=== PATIENT | male | born 1955 | race Caucasian/White ===

== ENCOUNTER 2020-08-29 22:53 | Inpatient (IN) | payer MEDICARE ==
[2020-08-29] MEDS ORDERED: Sodium Chloride 0.9% 1,000 ML IV SCH (23:15)
--- NOTE | 2020-08-29 23:23 | EDM.PDOC ---
ED HPI GENERAL MEDICAL PROBLEM - General Chief Complaint: Gastrointestinal Problem Stated Complaint: FEELING LIGHT HEADED,WEAK Time Seen by Provider: 08/29/20 23:20 Source of Information: Reports: Patient History Limitations: Reports: No Limitations - History of Present Illness INITIAL COMMENTS - FREE TEXT/NARRATIVE: pt arrived with a history of vomiting 3 times some very dark coffee ground material. Prior to coming to the hospital he had a dark looking stool. He has not had abdomanal pain recently. He has noted some reflux. Onset: Today, Sudden Duration: Hour(s): Location: Reports: Abdomen, Other (pt is feeling weak and dizzy. ) Associated Symptoms: Reports: Diaphoresis, Malaise, Nausea/Vomiting, Weakness Abdomen Pain Score (Numeric/FACES): 3 - Related Data Allergies Allergy/AdvReac Type Severity Reaction Status Date / Time No Known Allergies Allergy Verified 08/29/20 23:08 Home Meds: Home Meds Hydrocodone/Acetaminophen [[place] 5-325 Tablet] 1 - 2 tab PO Q6HR PRN 03/04/19 [History] predniSONE [Prednisone] 5 mg PO DAILY 03/04/19 [History] traZODone HCl [Trazodone HCl] 100 mg PO BEDTIME 03/04/19 [History] Pantoprazole Sodium [Protonix] 40 mg PO BID #30 tablet. 09/01/20 [Rx] Past Medical History HEENT History: Reports: Hard of Hearing Cardiovascular History: Reports: None Respiratory History: Reports: None Gastrointestinal History: Reports: None Genitourinary History: Reports: Prostate Disorder Musculoskeletal History: Reports: Arthritis Neurological History: Reports: Concussion, Head Trauma Psychiatric History: Reports: Depression Endocrine/Metabolic History: Reports: None Hematologic History: Reports: None Immunologic History: Reports: None Oncologic (Cancer) History: Reports: Bladder, Prostate Dermatologic History: Reports: None - Infectious Disease History Infectious Disease History: Reports: Chicken Pox, Measles - Past Surgical History Head Surgeries/Procedures: Reports: None HEENT Surgical History: Reports: None Cardiovascular Surgical History: Reports: None Respiratory Surgical History: Reports: None GI Surgical History: Reports: None Male Surgical History: Reports: Prostatectomy Endocrine Surgical History: Reports: None Neurological Surgical History: Reports: None Musculoskeletal Surgical History: Reports: Arthroscopic Knee, Other (See Below) Other Musculoskeletal Surgeries/Procedures:: RIGHT MIDDLE FINGER CYST Oncologic Surgical History: Reports: None Dermatological Surgical History: Reports: None Social & Family History - Family History Family Medical History: No Pertinent Family History - Caffeine Use Caffeine Use: Reports: Coffee ED ROS GENERAL - Review of Systems Review Of Systems: See Below Constitutional: Reports: Malaise, Weakness HEENT: Reports: No Symptoms Respiratory: Reports: No Symptoms Cardiovascular: Reports: No Symptoms Endocrine: Reports: No Symptoms GI/Abdominal: Reports: Abdominal Pain, Black Stool, Hematemesis, Nausea, Vomiting Musculoskeletal: Reports: No Symptoms Skin: Reports: No Symptoms Neurological: Reports: Dizziness, Other (pt did vomit blood. ) ED EXAM, GI/ABD - Physical Exam Exam: See Below Text/Narrative:: pt arrived with a history of vomiting three times some dark coffee ground looking material. He had a dark stool prior to leaving home. He has a history of a little reflux like symptoms recently. He is chronicly on predsone because of the ongoing joint symptoms from Lymes diease. Exam Limited By: No Limitations General Appearance: Alert, No Apparent Distress, Anxious, Other (pt is sweaty. ) Ears: Normal TMs Nose: Normal Inspection Throat/Mouth: Normal Inspection Head: Atraumatic Neck: Normal Inspection Respiratory/Chest: No Respiratory Distress Cardiovascular: Regular Rate, Rhythm, Tachycardia GI/Abdominal Exam: Soft, Non-Tender (Male) Exam: Deferred Rectal (Males) Exam: Bloody Stool, Other ( no masses present. ) Back Exam: Normal Inspection Extremities: Normal Inspection Neurological: Alert, Oriented, Normal Cognition Psychiatric: Anxious Course - Vital Signs Last Recorded V/S: Last Vital Signs Temp 36.4 C 09/01/20 10:27 Pulse 85 09/01/20 12:32 Resp 16 09/01/20 12:32 BP 147/82 H 09/01/20 12:32 Pulse Ox 97 09/01/20 12:32 - Orders/Labs/Meds Labs: Laboratory Tests 08/29/20 08/29/20 08/29/20 Range/Units 23:15 23:15 23:15 WBC 10.9 (4.5-11.0) K/uL RBC 4.48 (4.30-5.90) M/uL Hgb 13.6 (12.0-15.0) g/dL Hct 42.6 (40.0-54.0) % MCV 95 (80-98) fL MCH 30 (27-31) pg MCHC 32 (32-36) % Plt Count 280 (150-400) K/uL Neut % (Auto) 60 (36-66) % Lymph % (Auto) 27 (24-44) % [place] % (Auto) 11 H (2-6) % Eos % (Auto) 2 (2-4) % Baso % (Auto) 1 (0-1) % Sodium 141 (140-148) mmol/L Potassium 4.4 (3.6-5.2) mmol/L Chloride 100 (100-108) mmol/L Carbon Dioxide 29 (21-32) mmol/L Anion Gap 16.4 H (5.0-14.0) mmol/L BUN 42 H (7-18) mg/dL Creatinine 1.0 (0.8-1.3) mg/dL Est Cr Clr Drug Dosing 80.83 mL/min Estimated GFR (MDRD) > 60 (>60) Glucose 106 (74-106) mg/dL Calcium 9.1 (8.5-10.1) mg/dL Total Bilirubin 0.4 (0.2-1.0) mg/dL AST 21 (15-37) U/L ALT 33 (12-78) U/L Alkaline Phosphatase 77 (46-116) U/L Total Protein 6.9 (6.4-8.2) g/dL Albumin 3.5 (3.4-5.0) g/dL Globulin 3.4 (2.3-3.5) g/dL Albumin/Globulin Ratio 1.0 L (1.2-2.2) Blood Type A POSITIVE Gel Antibody Screen Negative Crossmatch See Detail Meds: Medications Discontinued Medications Generic Name Dose Route Start Last Admin Trade Name Freq PRN Reason Stop Dose Admin Acetaminophen 650 mg 08/30/20 00:30 Acetaminophen 650 Mg Supp RECTAL Q4H PRN Mild pain/fever Hydrocodone Bitart/Acetaminophen 1 - 2 tab 08/30/20 09:00 Acetaminophen/Hydrocodone 325-5 Mg Tab PO Q6H PRN Pain Fentanyl Confirm 08/30/20 06:59 Fentanyl 100 Mcg/2 Ml Sdv Administered 08/30/20 07:00 Dose 100 mcg .ROUTE .STK-MED ONE Sodium Chloride 1,000 mls @ 999 mls/hr 08/29/20 23:15 08/29/20 23:23 Normal Saline IV 999 mls/hr ASDIRECTED CYNTHIA Administration Pantoprazole Sodium 80 mg/ 100 mls @ 200 mls/hr 08/29/20 23:30 08/29/20 23:31 Sodium Chloride IV 200 mls/hr .BOLUS CYNTHIA Administration Octreotide Acetate 500 mcg/ 500 mls @ 50 mls/hr 08/30/20 00:30 08/30/20 11:12 Sodium Chloride IV 50 mcg/hr Q10H CYNTHIA 50 mls/hr Administration 50 MCG/HR Dextrose/Sodium Chloride 1,000 mls @ 100 mls/hr 08/30/20 00:30 08/30/20 20:13 Dextrose 5%-1/2 Ns IV 250 mls/hr ASDIRECTED CYNTHIA Administration Promethazine HCl 6.25 mg/ 50.25 mls @ 200 mls/hr 08/30/20 00:30 Sodium Chloride IV Q6H PRN Nausea/Vomiting Pantoprazole Sodium 80 mg/ 100 mls @ 200 mls/hr 08/30/20 00:30 08/30/20 01:57 Sodium Chloride IV 08/30/20 00:59 Not Given .BOLUS ONE Sodium Chloride 1,000 mls @ 1,000 mls/hr 08/30/20 00:53 08/30/20 04:54 Normal Saline IV 08/30/20 01:52 1,000 mls/hr .BOLUS ONE Administration Midazolam HCl Confirm 08/30/20 06:59 Midazolam 1 Mg/Ml 2 Ml Sdv Administered 08/30/20 07:00 Dose 2 mg .ROUTE .STK-MED ONE Morphine Sulfate 2 mg 08/30/20 00:30 Morphine 2 Mg/Ml Syringe IVPUSH Q2H PRN Pain (severe 7-10) Ondansetron HCl 4 mg 08/29/20 23:25 08/30/20 01:39 Ondansetron 4 Mg/2 Ml Sdv IVPUSH 08/29/20 23:26 Not Given ONETIME ONE Ondansetron HCl 4 mg 08/30/20 00:30 Ondansetron 4 Mg/2 Ml Sdv IV Q4H PRN Nausea/Vomiting Pantoprazole Sodium 40 mg 08/30/20 10:00 09/01/20 09:11 Pantoprazole 40 Mg Vial IV 40 mg Q12H CYNTHIA Administration Potassium Chloride 40 meq 08/31/20 09:00 08/31/20 08:31 Potassium Chloride 20 Meq Tab.Er PO 08/31/20 09:01 40 meq ONETIME ONE Administration Potassium Chloride 40 meq 09/01/20 09:00 09/01/20 09:16 Potassium Chloride 20 Meq Tab.Er PO 09/01/20 09:01 40 meq ONETIME ONE Administration Prednisone 5 mg 08/30/20 09:00 09/01/20 09:11 Prednisone 5 Mg Tab PO 5 mg DAILY CYNTHIA Administration Propofol Confirm 08/30/20 06:59 Propofol 200 Mg/20 Ml Sdv Administered 08/30/20 07:00 Dose 200 mg .ROUTE .STK-MED ONE Trazodone HCl 100 mg 08/30/20 21:00 08/31/20 22:58 Trazodone 50 Mg Tab PO 100 mg BEDTIME CYNTHIA Administration - Re-Assessments/Exams Free Text/Narrative Re-Assessment/Exam: 09/05/20 07:36 pt was hydrated and typed and crossed for blood. He remained stable. He did look better after fluids. His hg was 13. Departure - Departure Time of Disposition: 10:30 Disposition: Admitted As Inpatient 66 Condition: Fair Clinical Impression: GI bleeding Qualifiers: GI bleed type/associated pathology: gastrointestinal hemorrhage with hematemesis Qualified Code(s): K92.0 - Hematemesis - Discharge Information Sepsis Event Note (ED) - Evaluation Sepsis Screening Result: No Definite Risk
[2020-08-29] MEDS ORDERED: Ondansetron 4 MG/2 ML SDV IVPUSH ONE (23:25)
[2020-08-29] MEDS ORDERED: Pantoprazole 80 MG in Sodium Chloride 0.9% 100 ML IV SCH (23:30)
[2020-08-30] MEDS ORDERED: Acetaminophen 650 MG Supp RECTAL PRN (00:30)
[2020-08-30] MEDS ORDERED: Pantoprazole 80 MG in Sodium Chloride 0.9% 100 ML IV ONE (00:30)
[2020-08-30] MEDS ORDERED: Morphine 2 MG/ML SYRINGE IVPUSH PRN (00:30)
[2020-08-30] MEDS ORDERED: Promethazine 6.25 MG in Sodium Chloride 0.9% 50 ML IV PRN (00:30)
[2020-08-30] MEDS ORDERED: Ondansetron 4 MG/2 ML SDV IV PRN (00:30)
[2020-08-30] MEDS ORDERED: Sodium Chloride 0.9% 1,000 ML IV ONE (00:53)
--- NOTE | 2020-08-30 01:05 | PCM.HP.2 ---
H&P History of Present Illness - General Date of Service: 08/30/20 Admit Problem/Dx: Admission Diagnosis/Problem Admission Diagnosis/Problem Bleeding gastric erosion Source of Information: Patient History Limitations: Reports: No Limitations - History of Present Illness Initial Comments - Free Text/Narative: Patient is a 65yo male who presented to the ER today with dark stools and dark emesis. He has never had this before. He says he has chronically been on prednisone for the last 7+ years as well as being on hydrocodone. He says this is due to chronic lyme disease issues after having a severe course of lyme disease. He also endorses drinking 2-6 beers/nt for a very long time. He has been feeling dizzy and was found to have red stool after a XANDER done by the ER provider. He has never been diagnosed with liver disease or other bleeding issues. Onset of Symptoms: Reports: Today Symptom Onset Date: 08/29/20 Duration of Symptoms: Reports: Hour(s): Severity: Moderate Abdomen Pain Score (Numeric/FACES): 3 - Related Data Allergies/Adverse Reactions: Allergies Allergy/AdvReac Type Severity Reaction Status Date / Time No Known Allergies Allergy Verified 08/29/20 23:08 Home Medications: Home Meds Hydrocodone/Acetaminophen [[place] 5-325 Tablet] 1 - 2 tab PO Q6HR PRN 03/04/19 [History] predniSONE [Prednisone] 5 mg PO DAILY 03/04/19 [History] traZODone HCl [Trazodone HCl] 100 mg PO BEDTIME 03/04/19 [History] Past Medical History HEENT History: Reports: Hard of Hearing Cardiovascular History: Reports: None Respiratory History: Reports: None Gastrointestinal History: Reports: None Genitourinary History: Reports: Prostate Disorder Musculoskeletal History: Reports: Arthritis Neurological History: Reports: Concussion, Head Trauma Psychiatric History: Reports: Depression Endocrine/Metabolic History: Reports: None Hematologic History: Reports: None Immunologic History: Reports: None Oncologic (Cancer) History: Reports: Bladder, Prostate Dermatologic History: Reports: None - Infectious Disease History Infectious Disease History: Reports: Chicken Pox, Measles - Past Surgical History Head Surgeries/Procedures: Reports: None HEENT Surgical History: Reports: None Cardiovascular Surgical History: Reports: None Respiratory Surgical History: Reports: None GI Surgical History: Reports: None Male Surgical History: Reports: Prostatectomy Endocrine Surgical History: Reports: None Neurological Surgical History: Reports: None Musculoskeletal Surgical History: Reports: Arthroscopic Knee, Other (See Below) Other Musculoskeletal Surgeries/Procedures:: RIGHT MIDDLE FINGER CYST Oncologic Surgical History: Reports: None Dermatological Surgical History: Reports: None Social & Family History - Family History Family Medical History: No Pertinent Family History - Tobacco Use Tobacco Use Status *Q: Never Tobacco User - Caffeine Use Caffeine Use: Reports: Coffee - Alcohol Use Days Per Week of Alcohol Use: 6 Number of Drinks Per Day: 4 Total Drinks Per Week: 24 - Recreational Drug Use Recreational Drug Use: Yes Recreational Drug Type: Reports: Marijuana/Hashish Recreational Drug Use Frequency: Daily H&P Review of Systems - Review of Systems: Review Of Systems: See Below General: Reports: Fatigue, Diaphoresis HEENT: Reports: No Symptoms Pulmonary: Reports: No Symptoms Cardiovascular: Reports: No Symptoms Gastrointestinal: Reports: Black Stool, Bloody Stool, Hematemesis, Nausea, Vomiting Genitourinary: Reports: No Symptoms Musculoskeletal: Reports: No Symptoms Skin: Reports: No Symptoms Psychiatric: Reports: No Symptoms Neurological: Reports: No Symptoms Hematologic/Lymphatic: Reports: No Symptoms Immunologic: Reports: No Symptoms Exam - Exam Exam: See Below - Vital Signs Vital Signs: Last Vital Signs Temp 35.6 C L 08/29/20 23:17 Pulse 99 08/29/20 23:17 Resp 16 08/29/20 23:17 BP 114/71 08/29/20 23:17 Pulse Ox 98 08/29/20 23:17 Weight: 78.018 kg - Exam General: Alert, Oriented, 4 HEENT: PERRLA, Hearing Intact, Mucosa Moist & [place], Nares Patent, Normal Nasal Septum, Posterior Pharynx Clear, Conjunctiva Clear, EOMI, EACs Clear, TMs Clear Neck: Supple, Trachea Midline, 2 Lungs: Clear to Auscultation, Normal Respiratory Effort Cardiovascular: Regular Rate, Regular Rhythm GI/Abdominal Exam: Normal Bowel Sounds, Soft, Non-Tender, No Organomegaly, No Distention, No Abnormal Bruit, No Mass, Pelvis Stable (Male) Exam: Deferred Rectal (Males) Exam: Deferred Back Exam: Normal Inspection, Full Range of Motion, NT Extremities: Normal Inspection, Normal Range of Motion, Non-Tender, No Pedal Edema, Normal Capillary Refill Skin: Warm, Dry, Intact Neurological: Cranial Nerves Intact, Reflexes Equal Bilateral Neuro Extensive - Mental Status: Alert, Oriented x3, Normal Mood/Affect, Normal Cognition Neuro Extensive - Motor, Sensory, Reflexes: CN II-XII Intact, Normal Gait, Normal Reflexes Psychiatric: Alert, Normal Affect, Normal Mood - Patient Data Lab Results Last 24 hrs: Laboratory Results - last 24 hr 08/29/20 08/29/20 Range/Units 23:15 23:15 WBC 10.9 (4.5-11.0) K/uL RBC 4.48 (4.30-5.90) M/uL Hgb 13.6 (12.0-15.0) g/dL Hct 42.6 (40.0-54.0) % MCV 95 (80-98) fL MCH 30 (27-31) pg MCHC 32 (32-36) % Plt Count 280 (150-400) K/uL Neut % (Auto) 60 (36-66) % Lymph % (Auto) 27 (24-44) % [place] % (Auto) 11 H (2-6) % Eos % (Auto) 2 (2-4) % Baso % (Auto) 1 (0-1) % Sodium 141 (140-148) mmol/L Potassium 4.4 (3.6-5.2) mmol/L Chloride 100 (100-108) mmol/L Carbon Dioxide 29 (21-32) mmol/L Anion Gap 16.4 H (5.0-14.0) mmol/L BUN 42 H (7-18) mg/dL Creatinine 1.0 (0.8-1.3) mg/dL Est Cr Clr Drug Dosing 80.83 mL/min Estimated GFR (MDRD) > 60 (>60) Glucose 106 (74-106) mg/dL Calcium 9.1 (8.5-10.1) mg/dL Total Bilirubin 0.4 (0.2-1.0) mg/dL AST 21 (15-37) U/L ALT 33 (12-78) U/L Alkaline Phosphatase 77 (46-116) U/L Total Protein 6.9 (6.4-8.2) g/dL Albumin 3.5 (3.4-5.0) g/dL Globulin 3.4 (2.3-3.5) g/dL Albumin/Globulin Ratio 1.0 L (1.2-2.2) Result Diagrams: 08/29/20 23:15 08/29/20 23:15 Mario Results Last 24 hrs: Microbiology 08/29/20 23:25 Stool Occult Blood (MARIO) - Final Stool / Feces Sepsis Event Note - Evaluation Sepsis Screening Result: No Definite Risk - Focused Exam Vital Signs: Vital Signs Temp Pulse Resp BP Pulse Ox 08/29/20 23:17 35.6 C L 99 16 114/71 98 08/29/20 23:07 35.6 C L 99 16 114/71 98 - Problem List (1) GI bleeding SNOMED Code(s): 28478454 ICD Code: K92.2 - GASTROINTESTINAL HEMORRHAGE, UNSPECIFIED Status: Acute Priority: High Current Visit: Yes Problem Details: Patient has been on chronic prednisone for several years without GI prophylaxis. Additionally patient does admit to drinking and could have esophageal variceal bleeding, so patient will be started on high dose protonix as well as an octreotide drip. Patient will have CBC monitored every 2-3 hours and if patient's HGB drops below 8 he should be transfused 2 units of pRBCs, or if he becomes unstable at any time. Surgery called for consult for urgent EGD in the AM. Patient will be NPO and bolused with 0.9 NS as well as 5% dextrose and 0.45% saline to help with blood sugar. Patient is agreeable to this plan of care. Patient will be admitted to the ICU. Qualifiers: GI bleed type/associated pathology: gastrointestinal hemorrhage with hematemesis Qualified Code(s): K92.0 - Hematemesis (2) Chronic pain SNOMED Code(s): 00376072 ICD Code: G89.29 - OTHER CHRONIC PAIN Status: Acute Current Visit: Yes Problem Details: patient will have morphine available for pain control. NO NSAIDs or steroids should be used on patient and he is NPO for EGD in AM. Qualifiers: Chronic pain type: other chronic pain Qualified Code(s): G89.29 - Other chronic pain Problem List Initiated/Reviewed/Updated: Yes Orders Last 24hrs: Active Orders 24 hr Category Date Time Status Patient Status [ADT] Routine ADT 08/30/20 00:31 Ordered Head of Bed Elevation [RC] ASDIRECTED Care 08/30/20 00:30 Ordered Notify Provider Consults [RC] ASDIRECTED Care 08/30/20 00:46 Ordered Notify Provider Vital Signs [RC] ASDIRECTED Care 08/30/20 00:40 Ordered Oxygen Therapy [RC] PRN Care 08/30/20 00:31 Ordered Pulse Oximetry [RC] CONTINUOUS Care 08/30/20 00:37 Ordered VTE/DVT Education [RC] Per Unit Routine Care 08/30/20 00:31 Ordered Vital Signs [RC] Q4H Care 08/30/20 00:31 Ordered Consult to Physician [CONS] Stat Cons 08/30/20 00:30 Ordered Nothing per Oral Now Diet [DIET] Diet 08/30/20 Breakfast Ordered CBC WITH AUTO DIFF [HEME] Routine Lab 08/30/20 00:30 Ordered CBC WITH AUTO DIFF [HEME] Timed Lab 08/30/20 04:00 Ordered RED BLOOD CELLS LP [BBK] Stat Lab 08/29/20 23:15 Received TYPE AND SCREEN [BBK] Stat Lab 08/29/20 23:15 Received Acetaminophen [Tylenol] Med 08/30/20 00:30 Ordered 650 mg RECTAL Q4H PRN Dextrose 5%-0.45% NaCl [Dextrose 5%-1/2 NS] 1,000 ml Med 08/30/20 00:30 Ordered IV ASDIRECTED Morphine Med 08/30/20 00:30 Ordered 2 mg IVPUSH Q2H PRN Octreotide 200 MCG/ML 5 ML MDV Med 08/30/20 00:30 Ordered Octreotide [SandoSTATIN] 500 mcg Sodium Chloride 0.9% [Normal Saline] 497.5 ml IV Q10H Ondansetron [Zofran] Med 08/30/20 00:30 Ordered 4 mg IV Q4H PRN Pantoprazole [ProTONIX IV] 80 mg Med 08/29/20 23:30 Active Sodium Chloride 0.9% [Normal Saline] 100 ml IV .BOLUS Pantoprazole [ProTONIX IV] 80 mg Med 08/30/20 00:30 Ordered Sodium Chloride 0.9% [Normal Saline] 100 ml IV .BOLUS Promethazine [Phenergan] 6.25 mg Med 08/30/20 00:30 Ordered Sodium Chloride 0.9% [Normal Saline] 50 ml IV Q6H Sodium Chloride 0.9% [Normal Saline] 1,000 ml Med 08/30/20 00:53 Ordered IV .BOLUS Sodium Chloride 0.9% [Normal Saline] 1,000 ml Med 08/29/20 23:15 Active IV ASDIRECTED Resuscitation Status Routine Resus Stat 08/30/20 00:30 Ordered Medication Orders Acetaminophen (Acetaminophen 650 Mg Supp) 650 mg RECTAL Q4H PRN PRN Reason: Mild pain/fever Sodium Chloride (Normal Saline) 1,000 mls @ 999 mls/hr IV ASDIRECTED [facility] Last Admin: 08/29/20 23:23 Dose: 999 mls/hr Documented by: JOSEPH Pantoprazole Sodium 80 mg/ (Sodium Chloride) 100 mls @ 200 mls/hr IV .BOLUS [facility] Last Admin: 08/29/20 23:31 Dose: 200 mls/hr Documented by: JOSEPH Octreotide Acetate 500 mcg/ (Sodium Chloride) 500 mls @ 50 mls/hr IV Q10H CYNTHIA Dextrose/Sodium Chloride (Dextrose 5%-1/2 Ns) 1,000 mls @ 250 mls/hr IV ASDIRECTED [facility] Promethazine HCl 6.25 mg/ (Sodium Chloride) 50.25 mls @ 200 mls/hr IV Q6H PRN PRN Reason: Nausea/Vomiting Pantoprazole Sodium 80 mg/ (Sodium Chloride) 100 mls @ 200 mls/hr IV .BOLUS ONE Stop: 08/30/20 00:59 Sodium Chloride (Normal Saline) 1,000 mls @ 1,000 mls/hr IV .BOLUS ONE Stop: 08/30/20 01:52 Morphine Sulfate (Morphine 2 Mg/Ml Syringe) 2 mg IVPUSH Q2H PRN PRN Reason: Pain (severe 7-10) Ondansetron HCl (Ondansetron 4 Mg/2 Ml Sdv) 4 mg IV Q4H PRN PRN Reason: Nausea/Vomiting - Mortality Measure Prognosis:: Good
[2020-08-30] MEDS: Dextrose 5%-0.45% NaCl 1,000 ML IV SCH ×4 (01:39→20:13)
[2020-08-30] MEDS: Octreotide 500 MCG in Sodium Chloride 0.9% 497.5 ML IV SCH ×2 (02:04→11:12)
[2020-08-30] MEDS ORDERED: fentaNYL 100 MCG/2 ML SDV ONE (06:59)
[2020-08-30] MEDS ORDERED: Propofol 200 MG/20 ML SDV ONE (06:59)
[2020-08-30] MEDS ORDERED: Midazolam 1 MG/ML 2 ML SDV ONE (06:59)
[2020-08-30] MEDS ORDERED: Acetaminophen/HYDROcodone 325-5 MG Tab PO PRN (09:00)
[2020-08-30] MEDS: predniSONE 5 MG Tab PO SCH (09:47)
[2020-08-30] MEDS: Pantoprazole 40 MG Vial IV SCH ×2 (09:48→21:52)
--- NOTE | 2020-08-30 14:34 | PCM.PN ---
- General Info Date of Service: 08/30/20 Subjective Update: Mr. Haas is a 65-year-old gentleman who was admitted through the emergency department with weakness and hematemesis secondary to an upper GI bleed. He has been stable since admission with no further evidence of active bleeding. Hemoglobin did drop but about what 1 would expect from hydration. He was seen and evaluated this morning by Dr. Joe and EGD was performed. This did show evidence of pyloric inflammation with a prepyloric ulcer and clot present. There was no evidence of active bleeding. Functional Status: Reports: Tolerating Diet, Urinating - Review of Systems General: Reports: Weakness, Fatigue. Denies: Fever, Chills Pulmonary: Reports: No Symptoms Cardiovascular: Reports: No Symptoms Gastrointestinal: Reports: No Symptoms Genitourinary: Reports: No Symptoms - Patient Data Vitals - Most Recent: Last Vital Signs Temp 97.1 F 08/30/20 11:00 Pulse 65 08/30/20 12:00 Resp 14 08/30/20 12:00 BP 147/83 H 08/30/20 12:00 Pulse Ox 96 08/30/20 12:00 Weight - Most Recent: 172 lb 0.004 oz I&O - Last 24 Hours: Intake & Output 08/29/20 08/30/20 08/30/20 22:59 06:59 14:59 Intake Total 50 Balance 50 Lab Results Last 24 Hours: Laboratory Results - last 24 hr 08/29/20 08/29/20 08/29/20 Range/Units 23:15 23:15 23:15 WBC 10.9 (4.5-11.0) K/uL RBC 4.48 (4.30-5.90) M/uL Hgb 13.6 (12.0-15.0) g/dL Hct 42.6 (40.0-54.0) % MCV 95 (80-98) fL MCH 30 (27-31) pg MCHC 32 (32-36) % Plt Count 280 (150-400) K/uL Neut % (Auto) 60 (36-66) % Lymph % (Auto) 27 (24-44) % [place] % (Auto) 11 H (2-6) % Eos % (Auto) 2 (2-4) % Baso % (Auto) 1 (0-1) % Sodium 141 (140-148) mmol/L Potassium 4.4 (3.6-5.2) mmol/L Chloride 100 (100-108) mmol/L Carbon Dioxide 29 (21-32) mmol/L Anion Gap 16.4 H (5.0-14.0) mmol/L BUN 42 H (7-18) mg/dL Creatinine 1.0 (0.8-1.3) mg/dL Est Cr Clr Drug Dosing 80.83 mL/min Estimated GFR (MDRD) > 60 (>60) Glucose 106 (74-106) mg/dL Calcium 9.1 (8.5-10.1) mg/dL Total Bilirubin 0.4 (0.2-1.0) mg/dL AST 21 (15-37) U/L ALT 33 (12-78) U/L Alkaline Phosphatase 77 (46-116) U/L Total Protein 6.9 (6.4-8.2) g/dL Albumin 3.5 (3.4-5.0) g/dL Globulin 3.4 (2.3-3.5) g/dL Albumin/Globulin Ratio 1.0 L (1.2-2.2) Blood Type A POSITIVE Gel Antibody Screen Negative Crossmatch See Detail 08/30/20 08/30/20 Range/Units 00:55 04:00 WBC 10.4 8.1 (4.5-11.0) K/uL RBC 3.68 L 3.60 L (4.30-5.90) M/uL Hgb 11.3 L D 10.8 L (12.0-15.0) g/dL Hct 35.2 L 34.2 L (40.0-54.0) % MCV 96 95 (80-98) fL MCH 31 30 (27-31) pg MCHC 32 32 (32-36) % Plt Count 225 222 (150-400) K/uL Neut % (Auto) 73 H 70 H (36-66) % Lymph % (Auto) 14 L 18 L (24-44) % [place] % (Auto) 11 H 10 H (2-6) % Eos % (Auto) 2 1 L (2-4) % Baso % (Auto) 1 0 (0-1) % Sodium (140-148) mmol/L Potassium (3.6-5.2) mmol/L Chloride (100-108) mmol/L Carbon Dioxide (21-32) mmol/L Anion Gap (5.0-14.0) mmol/L BUN (7-18) mg/dL Creatinine (0.8-1.3) mg/dL Est Cr Clr Drug Dosing mL/min Estimated GFR (MDRD) (>60) Glucose (74-106) mg/dL Calcium (8.5-10.1) mg/dL Total Bilirubin (0.2-1.0) mg/dL AST (15-37) U/L ALT (12-78) U/L Alkaline Phosphatase (46-116) U/L Total Protein (6.4-8.2) g/dL Albumin (3.4-5.0) g/dL Globulin (2.3-3.5) g/dL Albumin/Globulin Ratio (1.2-2.2) Blood Type Gel Antibody Screen Crossmatch Mario Results Last 24 Hours: Microbiology 08/29/20 23:25 Stool Occult Blood (MARIO) - Final Stool / Feces Med Orders - Current: Current Medications Acetaminophen (Acetaminophen 650 Mg Supp) 650 mg RECTAL Q4H PRN PRN Reason: Mild pain/fever Hydrocodone Bitart/Acetaminophen (Acetaminophen/Hydrocodone 325-5 Mg Tab) 1 - 2 tab PO Q6H PRN PRN Reason: Pain Dextrose/Sodium Chloride (Dextrose 5%-1/2 Ns) 1,000 mls @ 100 mls/hr IV ASDIRECTED [facility] Last Admin: 08/30/20 10:11 Dose: 250 mls/hr Documented by: Promethazine HCl 6.25 mg/ (Sodium Chloride) 50.25 mls @ 200 mls/hr IV Q6H PRN PRN Reason: Nausea/Vomiting Morphine Sulfate (Morphine 2 Mg/Ml Syringe) 2 mg IVPUSH Q2H PRN PRN Reason: Pain (severe 7-10) Non-Formulary Medication (Trazodone Hcl [Trazodone Hcl]) 100 mg PO BEDTIME [facility] Ondansetron HCl (Ondansetron 4 Mg/2 Ml Sdv) 4 mg IV Q4H PRN PRN Reason: Nausea/Vomiting Pantoprazole Sodium (Pantoprazole 40 Mg Vial) 40 mg IV Q12H [facility] Last Admin: 08/30/20 09:48 Dose: 40 mg Documented by: Prednisone (Prednisone 5 Mg Tab) 5 mg PO DAILY [facility] Last Admin: 08/30/20 09:47 Dose: 5 mg Documented by: Discontinued Medications Fentanyl (Fentanyl 100 Mcg/2 Ml Sdv) Confirm Administered Dose 100 mcg .ROUTE .STK-MED ONE Stop: 08/30/20 07:00 Sodium Chloride (Normal Saline) 1,000 mls @ 999 mls/hr IV ASDIRECTED [facility] Last Admin: 08/29/20 23:23 Dose: 999 mls/hr Documented by: Pantoprazole Sodium 80 mg/ (Sodium Chloride) 100 mls @ 200 mls/hr IV .BOLUS [facility] Last Admin: 08/29/20 23:31 Dose: 200 mls/hr Documented by: Octreotide Acetate 500 mcg/ (Sodium Chloride) 500 mls @ 50 mls/hr IV Q10H [facility] Last Admin: 08/30/20 11:12 Dose: 50 mcg/hr, 50 mls/hr Documented by: Pantoprazole Sodium 80 mg/ (Sodium Chloride) 100 mls @ 200 mls/hr IV .BOLUS ONE Stop: 08/30/20 00:59 Last Admin: 08/30/20 01:57 Dose: Not Given Documented by: Sodium Chloride (Normal Saline) 1,000 mls @ 1,000 mls/hr IV .BOLUS ONE Stop: 08/30/20 01:52 Last Admin: 08/30/20 04:54 Dose: 1,000 mls/hr Documented by: Midazolam HCl (Midazolam 1 Mg/Ml 2 Ml Sdv) Confirm Administered Dose 2 mg .ROUTE .STK-MED ONE Stop: 08/30/20 07:00 Ondansetron HCl (Ondansetron 4 Mg/2 Ml Sdv) 4 mg IVPUSH ONETIME ONE Stop: 08/29/20 23:26 Last Admin: 08/30/20 01:39 Dose: Not Given Documented by: Propofol (Propofol 200 Mg/20 Ml Sdv) Confirm Administered Dose 200 mg .ROUTE .STK-MED ONE Stop: 08/30/20 07:00 - Exam Quality Assessment: DVT Prophylaxis General: Alert, Oriented, Cooperative, Mild Distress Lungs: Clear to Auscultation, Normal Respiratory Effort Cardiovascular: Regular Rate, Regular Rhythm, No Murmurs GI/Abdominal Exam: Soft, Non-Tender, No Organomegaly, No Distention Extremities: Non-Tender, No Pedal Edema - Patient Data Lab Results Last 24 hrs: Laboratory Results - last 24 hr 08/29/20 08/29/20 08/29/20 Range/Units 23:15 23:15 23:15 WBC 10.9 (4.5-11.0) K/uL RBC 4.48 (4.30-5.90) M/uL Hgb 13.6 (12.0-15.0) g/dL Hct 42.6 (40.0-54.0) % MCV 95 (80-98) fL MCH 30 (27-31) pg MCHC 32 (32-36) % Plt Count 280 (150-400) K/uL Neut % (Auto) 60 (36-66) % Lymph % (Auto) 27 (24-44) % [place] % (Auto) 11 H (2-6) % Eos % (Auto) 2 (2-4) % Baso % (Auto) 1 (0-1) % Sodium 141 (140-148) mmol/L Potassium 4.4 (3.6-5.2) mmol/L Chloride 100 (100-108) mmol/L Carbon Dioxide 29 (21-32) mmol/L Anion Gap 16.4 H (5.0-14.0) mmol/L BUN 42 H (7-18) mg/dL Creatinine 1.0 (0.8-1.3) mg/dL Est Cr Clr Drug Dosing 80.83 mL/min Estimated GFR (MDRD) > 60 (>60) Glucose 106 (74-106) mg/dL Calcium 9.1 (8.5-10.1) mg/dL Total Bilirubin 0.4 (0.2-1.0) mg/dL AST 21 (15-37) U/L ALT 33 (12-78) U/L Alkaline Phosphatase 77 (46-116) U/L Total Protein 6.9 (6.4-8.2) g/dL Albumin 3.5 (3.4-5.0) g/dL Globulin 3.4 (2.3-3.5) g/dL Albumin/Globulin Ratio 1.0 L (1.2-2.2) Blood Type A POSITIVE Gel Antibody Screen Negative Crossmatch See Detail 08/30/20 08/30/20 Range/Units 00:55 04:00 WBC 10.4 8.1 (4.5-11.0) K/uL RBC 3.68 L 3.60 L (4.30-5.90) M/uL Hgb 11.3 L D 10.8 L (12.0-15.0) g/dL Hct 35.2 L 34.2 L (40.0-54.0) % MCV 96 95 (80-98) fL MCH 31 30 (27-31) pg MCHC 32 32 (32-36) % Plt Count 225 222 (150-400) K/uL Neut % (Auto) 73 H 70 H (36-66) % Lymph % (Auto) 14 L 18 L (24-44) % [place] % (Auto) 11 H 10 H (2-6) % Eos % (Auto) 2 1 L (2-4) % Baso % (Auto) 1 0 (0-1) % Sodium (140-148) mmol/L Potassium (3.6-5.2) mmol/L Chloride (100-108) mmol/L Carbon Dioxide (21-32) mmol/L Anion Gap (5.0-14.0) mmol/L BUN (7-18) mg/dL Creatinine (0.8-1.3) mg/dL Est Cr Clr Drug Dosing mL/min Estimated GFR (MDRD) (>60) Glucose (74-106) mg/dL Calcium (8.5-10.1) mg/dL Total Bilirubin (0.2-1.0) mg/dL AST (15-37) U/L ALT (12-78) U/L Alkaline Phosphatase (46-116) U/L Total Protein (6.4-8.2) g/dL Albumin (3.4-5.0) g/dL Globulin (2.3-3.5) g/dL Albumin/Globulin Ratio (1.2-2.2) Blood Type Gel Antibody Screen Crossmatch Result Diagrams: 08/30/20 04:00 08/29/20 23:15 Mario Results Last 24 hrs: Microbiology 08/29/20 23:25 Stool Occult Blood (MARIO) - Final Stool / Feces Sepsis Event Note - Evaluation Sepsis Screening Result: No Definite Risk - Focused Exam Vital Signs: Vital Signs Temp Pulse Resp BP Pulse Ox 08/30/20 12:00 65 14 147/83 H 96 08/30/20 11:00 97.1 F 68 14 147/98 H 96 08/30/20 10:00 70 16 162/86 H 97 08/30/20 09:00 73 14 163/103 H 96 08/30/20 08:32 71 13 151/81 H 96 08/30/20 08:19 97.1 F 68 13 153/90 H 96 08/30/20 08:00 97.2 F 75 13 136/86 95 08/30/20 07:55 97.3 F 74 14 145/87 H 97 08/30/20 07:50 76 14 138/77 95 08/30/20 07:45 72 14 117/74 98 08/30/20 07:40 74 14 116/61 97 08/30/20 07:35 97.3 F 77 14 116/59 L 98 08/30/20 07:16 98 08/30/20 07:00 97.1 F 70 16 96 08/30/20 06:00 97.8 F 16 179/96 H 99 08/30/20 05:00 20 149/81 H 99 08/30/20 04:00 11 L 159/92 H 97 08/30/20 03:00 14 144/97 H 98 - Problem List Review Problem List Initiated/Reviewed/Updated: Yes - My Orders Last 24 Hours: My Active Orders 08/30/20 09:00 Acetaminophen/HYDROcodone [[place] 325-5 MG] 1 - 2 tab PO Q6H PRN predniSONE 5 mg PO DAILY 08/30/20 17:00 HGB [HEMOGLOBIN] [HEME] Stat 08/30/20 21:00 traZODone HCl [Trazodone HCl] 100 mg PO BEDTIME 08/31/20 05:00 BASIC METABOLIC PANEL,BMP [CHEM] Timed CBC WITH AUTO DIFF [HEME] Timed - Plan Plan:: ASSESSMENT AND PLAN UPPER GI BLEED SECONDARY TO PREPYLORIC ULCER-ulcer identified at the time of EGD associated with significant pyloric inflammation. Clot was noted within the ulcer with no evidence of active bleeding. -Sips of clear liquid -Protonix 40 mg IV twice daily -Serial hemoglobin levels -Surgical follow-up per Dr. Joe ACUTE BLOOD LOSS ANEMIA-secondary to bleeding ulcer -Management as above CHRONIC PAIN -Continue outpatient medications MAINTENANCE ISSUES -DVT prophylaxis; sequential compression devices -GI prophylaxis; Protonix as above -Cruz catheter; not indicated -Nutrition; sips of clear liquid -Nicotine dependence; not required CODE STATUS-FULL CODE ADMISSION STATUS-patient will be admitted to inpatient status, expect at least a 2 night hospital stay for evaluation and management of problems as outlined above. At the time of this admission I do not reasonably expected evaluation and management of this problem will require more than a 96 hour hospital stay. DISPOSITION-anticipate discharge to home after the hospital stay. PRIMARY CARE PROVIDER-Mary Mathis
[2020-08-30] MEDS ORDERED: Non-Formulary Medication 1 Each (Trazodone Hcl [Trazodone Hcl] 100 MG Tablet) PO SCH (21:00)
[2020-08-30] MEDS: traZODone 50 MG Tab PO SCH (21:52)
[2020-08-31] MEDS: predniSONE 5 MG Tab PO SCH (08:32)
[2020-08-31] MEDS ORDERED: Potassium Chloride 20 MEQ Tab.ER PO ONE (09:00)
--- NOTE | 2020-08-31 09:55 | PCM.PN ---
- General Info Date of Service: 08/31/20 Subjective Update: Mr. Haas has been stable since yesterday with no evidence of active bleeding. He denies abdominal pain and has experienced good improvement in his overall strength. Functional Status: Reports: Tolerating Diet, Urinating - Review of Systems General: Reports: No Symptoms Pulmonary: Reports: No Symptoms Cardiovascular: Reports: No Symptoms Gastrointestinal: Reports: No Symptoms Genitourinary: Reports: No Symptoms - Patient Data Vitals - Most Recent: Last Vital Signs Temp 97.9 F 08/31/20 08:00 Pulse 80 08/31/20 08:00 Resp 14 08/31/20 08:00 BP 137/89 08/31/20 08:00 Pulse Ox 96 08/31/20 08:00 Weight - Most Recent: 172 lb 0.004 oz I&O - Last 24 Hours: Intake & Output 08/30/20 08/31/20 08/31/20 22:59 06:59 14:59 Intake Total 1800 1177 Balance 1800 1177 Lab Results Last 24 Hours: Laboratory Results - last 24 hr 08/30/20 08/31/20 08/31/20 Range/Units 16:50 05:52 05:52 WBC 7.5 (4.5-11.0) K/uL RBC 3.71 L (4.30-5.90) M/uL Hgb 12.7 11.2 L (12.0-15.0) g/dL Hct 34.9 L (40.0-54.0) % MCV 94 (80-98) fL MCH 30 (27-31) pg MCHC 32 (32-36) % Plt Count 234 (150-400) K/uL Add Manual Diff Yes Neutrophils % (Manual) 58 (36-66) % Band Neutrophils % 2 L (5-11) % Lymphocytes % (Manual) 27 (24-44) % Monocytes % (Manual) 12 H (2-6) % Eosinophils % (Manual) 1 L (2-4) % Sodium 142 (140-148) mmol/L Potassium 3.3 L (3.6-5.2) mmol/L Chloride 105 (100-108) mmol/L Carbon Dioxide 28 (21-32) mmol/L Anion Gap 12.3 (5.0-14.0) mmol/L BUN 10 D (7-18) mg/dL Creatinine 0.9 (0.8-1.3) mg/dL Est Cr Clr Drug Dosing 89.94 mL/min Estimated GFR (MDRD) > 60 (>60) Glucose 115 H (74-106) mg/dL Calcium 8.4 L (8.5-10.1) mg/dL Mario Results Last 24 Hours: Microbiology 08/30/20 07:30 CLOtest - Final Stomach NEGATIVE CLOTEST REFERENCE RANGE: NEGATIVE Med Orders - Current: Current Medications Acetaminophen (Acetaminophen 650 Mg Supp) 650 mg RECTAL Q4H PRN PRN Reason: Mild pain/fever Hydrocodone Bitart/Acetaminophen (Acetaminophen/Hydrocodone 325-5 Mg Tab) 1 - 2 tab PO Q6H PRN PRN Reason: Pain Promethazine HCl 6.25 mg/ (Sodium Chloride) 50.25 mls @ 200 mls/hr IV Q6H PRN PRN Reason: Nausea/Vomiting Morphine Sulfate (Morphine 2 Mg/Ml Syringe) 2 mg IVPUSH Q2H PRN PRN Reason: Pain (severe 7-10) Ondansetron HCl (Ondansetron 4 Mg/2 Ml Sdv) 4 mg IV Q4H PRN PRN Reason: Nausea/Vomiting Pantoprazole Sodium (Pantoprazole 40 Mg Vial) 40 mg IV Q12H [facility] Last Admin: 08/30/20 21:52 Dose: 40 mg Documented by: Prednisone (Prednisone 5 Mg Tab) 5 mg PO DAILY [facility] Last Admin: 08/31/20 08:32 Dose: 5 mg Documented by: Trazodone HCl (Trazodone 50 Mg Tab) 100 mg PO BEDTIME [facility] Last Admin: 08/30/20 21:52 Dose: 100 mg Documented by: Discontinued Medications Fentanyl (Fentanyl 100 Mcg/2 Ml Sdv) Confirm Administered Dose 100 mcg .ROUTE .STK-MED ONE Stop: 08/30/20 07:00 Sodium Chloride (Normal Saline) 1,000 mls @ 999 mls/hr IV ASDIRECTED [facility] Last Admin: 08/29/20 23:23 Dose: 999 mls/hr Documented by: Pantoprazole Sodium 80 mg/ (Sodium Chloride) 100 mls @ 200 mls/hr IV .BOLUS [facility] Last Admin: 08/29/20 23:31 Dose: 200 mls/hr Documented by: Octreotide Acetate 500 mcg/ (Sodium Chloride) 500 mls @ 50 mls/hr IV Q10H [facility] Last Admin: 08/30/20 11:12 Dose: 50 mcg/hr, 50 mls/hr Documented by: Dextrose/Sodium Chloride (Dextrose 5%-1/2 Ns) 1,000 mls @ 100 mls/hr IV ASDIRECTED [facility] Last Admin: 08/30/20 20:13 Dose: 250 mls/hr Documented by: Pantoprazole Sodium 80 mg/ (Sodium Chloride) 100 mls @ 200 mls/hr IV .BOLUS ONE Stop: 08/30/20 00:59 Last Admin: 08/30/20 01:57 Dose: Not Given Documented by: Sodium Chloride (Normal Saline) 1,000 mls @ 1,000 mls/hr IV .BOLUS ONE Stop: 08/30/20 01:52 Last Admin: 08/30/20 04:54 Dose: 1,000 mls/hr Documented by: Midazolam HCl (Midazolam 1 Mg/Ml 2 Ml Sdv) Confirm Administered Dose 2 mg .ROUTE .STK-MED ONE Stop: 08/30/20 07:00 Ondansetron HCl (Ondansetron 4 Mg/2 Ml Sdv) 4 mg IVPUSH ONETIME ONE Stop: 08/29/20 23:26 Last Admin: 08/30/20 01:39 Dose: Not Given Documented by: Potassium Chloride (Potassium Chloride 20 Meq Tab.Er) 40 meq PO ONETIME ONE Stop: 08/31/20 09:01 Last Admin: 08/31/20 08:31 Dose: 40 meq Documented by: Propofol (Propofol 200 Mg/20 Ml Sdv) Confirm Administered Dose 200 mg .ROUTE .STK-MED ONE Stop: 08/30/20 07:00 - Exam Quality Assessment: DVT Prophylaxis General: Alert, Oriented, Cooperative, No Acute Distress Lungs: Clear to Auscultation, Normal Respiratory Effort Cardiovascular: Regular Rate, Regular Rhythm, No Murmurs GI/Abdominal Exam: Soft, Non-Tender, No Organomegaly, No Distention Extremities: Non-Tender, No Pedal Edema - Patient Data Lab Results Last 24 hrs: Laboratory Results - last 24 hr 08/30/20 08/31/20 08/31/20 Range/Units 16:50 05:52 05:52 WBC 7.5 (4.5-11.0) K/uL RBC 3.71 L (4.30-5.90) M/uL Hgb 12.7 11.2 L (12.0-15.0) g/dL Hct 34.9 L (40.0-54.0) % MCV 94 (80-98) fL MCH 30 (27-31) pg MCHC 32 (32-36) % Plt Count 234 (150-400) K/uL Add Manual Diff Yes Neutrophils % (Manual) 58 (36-66) % Band Neutrophils % 2 L (5-11) % Lymphocytes % (Manual) 27 (24-44) % Monocytes % (Manual) 12 H (2-6) % Eosinophils % (Manual) 1 L (2-4) % Sodium 142 (140-148) mmol/L Potassium 3.3 L (3.6-5.2) mmol/L Chloride 105 (100-108) mmol/L Carbon Dioxide 28 (21-32) mmol/L Anion Gap 12.3 (5.0-14.0) mmol/L BUN 10 D (7-18) mg/dL Creatinine 0.9 (0.8-1.3) mg/dL Est Cr Clr Drug Dosing 89.94 mL/min Estimated GFR (MDRD) > 60 (>60) Glucose 115 H (74-106) mg/dL Calcium 8.4 L (8.5-10.1) mg/dL Result Diagrams: 08/31/20 05:52 08/31/20 05:52 Mario Results Last 24 hrs: Microbiology 08/30/20 07:30 CLOtest - Final Stomach NEGATIVE CLOTEST REFERENCE RANGE: NEGATIVE Sepsis Event Note - Evaluation Sepsis Screening Result: No Definite Risk - Focused Exam Vital Signs: Vital Signs Temp Pulse Resp BP Pulse Ox 08/31/20 08:00 97.9 F 80 14 137/89 96 08/31/20 06:00 13 151/77 H 96 08/31/20 04:00 97.7 F 13 126/71 95 08/31/20 02:00 97.4 F 15 150/86 H 94 L 08/31/20 00:00 14 120/87 95 08/30/20 22:00 96.8 F L 17 147/89 H 96 - Problem List Review Problem List Initiated/Reviewed/Updated: Yes - My Orders Last 24 Hours: My Active Orders 08/30/20 09:00 Acetaminophen/HYDROcodone [[place] 325-5 MG] 1 - 2 tab PO Q6H PRN predniSONE 5 mg PO DAILY 08/30/20 14:39 Antiembolic Devices [RC] .Routine Sequential Compression Device [OM.PC] Routine 08/30/20 21:00 traZODone 100 mg PO BEDTIME 08/31/20 09:53 Patient Status [ADT] Routine Convert IV to Saline Lock [OM.PC] Routine 08/31/20 17:00 HGB [HEMOGLOBIN] [HEME] Stat POTASSIUM,K [CHEM] Stat 09/01/20 05:11 HGB [HEMOGLOBIN] [HEME] AM POTASSIUM,K [CHEM] AM - Plan Plan:: ASSESSMENT AND PLAN UPPER GI BLEED SECONDARY TO PREPYLORIC ULCER-ulcer identified at the time of EGD associated with significant pyloric inflammation. Clot was noted within the ulcer with no evidence of active bleeding. -Full liquid diet -Protonix 40 mg IV twice daily -Serial hemoglobin levels -Surgical follow-up per Dr. Joe ACUTE BLOOD LOSS ANEMIA-secondary to bleeding ulcer -Management as above CHRONIC PAIN -Continue outpatient medications MAINTENANCE ISSUES -DVT prophylaxis; sequential compression devices -GI prophylaxis; Protonix as above -Cruz catheter; not indicated -Nutrition; sips of clear liquid -Nicotine dependence; not required CODE STATUS-FULL CODE ADMISSION STATUS-patient will be admitted to inpatient status, expect at least a 2 night hospital stay for evaluation and management of problems as outlined above. At the time of this admission I do not reasonably expected evaluation and management of this problem will require more than a 96 hour hospital stay. DISPOSITION-anticipate discharge to home after the hospital stay. PRIMARY CARE PROVIDER-Mary Mathis
[2020-08-31] MEDS: Pantoprazole 40 MG Vial IV SCH ×2 (10:44→22:58)
[2020-08-31] MEDS: traZODone 50 MG Tab PO SCH (22:58)
[2020-09-01] MEDS ORDERED: Potassium Chloride 20 MEQ Tab.ER PO ONE (09:00)
[2020-09-01] MEDS: Pantoprazole 40 MG Vial IV SCH (09:11)
[2020-09-01] MEDS: predniSONE 5 MG Tab PO SCH (09:11)
--- NOTE | 2020-09-01 14:40 | PCM.DCSUM1 ---
Discharge Summary - Hospital Course Brief History: Mr. Haas is a 65-year-old gentleman who was admitted through the emergency department with hematemesis and melenic stool secondary to an upper GI bleed. - Discharge Data Discharge Date: 09/01/20 Discharge Disposition: Home, Self-Care 01 Condition: Good - Referral to Home Health Primary Care Physician: GRADY Mcnair - Discharge Diagnosis/Problem(s) (1) Acute prepyloric ulcer SNOMED Code(s): 58310281 ICD Code: K25.3 - ACUTE GASTRIC ULCER WITHOUT HEMORRHAGE OR PERFORATION Status: Acute Current Visit: Yes (2) Acute blood loss anemia SNOMED Code(s): 374770740 ICD Code: D62 - ACUTE POSTHEMORRHAGIC ANEMIA Status: Acute Current Visit: Yes (3) GI bleeding SNOMED Code(s): 04898349 ICD Code: K92.2 - GASTROINTESTINAL HEMORRHAGE, UNSPECIFIED Status: Acute Priority: High Current Visit: Yes Problem Details: Patient has been on chronic prednisone for several years without GI prophylaxis. Additionally patient does admit to drinking and could have esophageal variceal bleeding, so patient will be started on high dose protonix as well as an octreotide drip. Patient will have CBC monitored every 2-3 hours and if patient's HGB drops below 8 he should be transfused 2 units of pRBCs, or if he becomes unstable at any time. Surgery called for consult for urgent EGD in the AM. Patient will be NPO and bolused with 0.9 NS as well as 5% dextrose and 0.45% saline to help with blood sugar. Patient is agreeable to this plan of care. Patient will be admitted to the ICU. Qualifiers: GI bleed type/associated pathology: gastrointestinal hemorrhage with hematemesis Qualified Code(s): K92.0 - Hematemesis - Patient Summary/Data Consults: Consultations 08/30/20 00:30 Consult to Physician [CONS] Stat Consulting Provider: Marlon Joe Courtesy Call Completed to Consulting Physician: Yes Reason for Consult: GI bleed Person Notified: Oleg Joe Date Notified: 08/30/20 Time Notified: 00:46 08/31/20 13:01 Consult to Dietary [Consult to Sports Editor] [CONS] Routine Comment: Physician Instructions: Quantity: Hospital Course: Mr. Haas is a 65yo male who presented to the ER with dark stools and dark emesis. He has never had this before. He says he has chronically been on prednisone for the last 7+ years as well as being on hydrocodone. He says this is due to chronic lyme disease issues after having a severe course of lyme disease. He also endorses drinking 2-6 beers/nt for a very long time. He has been feeling dizzy and was found to have red stool after a XANDER done by the ER provider. He has never been diagnosed with liver disease or other bleeding issues. On admission he was placed on IV Protonix 40 mg twice daily and given IV fluids for hydration. There was a modest drop in hemoglobin after admission which was felt to be secondary to hydration. He did have some ongoing melenic stools during the hospital stay but never showed further evidence of active bleeding. Serial hemoglobin levels remained relatively stable. On the day after admission he was seen and evaluated by Dr. Joe. EGD was performed which showed evidence of pyloric inflammation and a prepyloric ulcer with a clot. There was no evidence of active bleeding were noted at the time of EGD. He remained stable through the rest of hospitalization, diet was advanced and he was tolerating a soft low residue diet prior to discharge. Activity will be as tolerated and he will be on a soft low residue diet for the next 2 weeks. He will be discharged on Protonix 40 mg twice daily for 2 weeks and then once daily thereafter. He was given information concerning low acid and soft low residue diet. He should return to the emergency department immediately if he notes any evidence of recurrent bleeding. Follow-up EGD will be scheduled with Dr. Joe within 4 to 6 weeks. Follow-up appointment will be scheduled with primary care provider within 1 week and a hemoglobin level should be obtained at the time of that appointment. Consider tapering him off of prednisone on an outpatient basis. - Patient Instructions Diet: GI Soft/Low Residue/Low Fiber Activity: As Tolerated Other/Special Instructions: Please schedule follow-up appointment with Mary Mathis within 1 week. Hemoglobin level should be obtained at the time of follow-up appointment. Please schedule follow-up EGD with Dr. Joe in 4 to 6 weeks. - Discharge Plan *PRESCRIPTION DRUG MONITORING PROGRAM REVIEWED*: Not Applicable *COPY OF PRESCRIPTION DRUG MONITORING REPORT IN PATIENT DIYA: Not Applicable Prescriptions/Med Rec: Pantoprazole Sodium [Protonix] 40 mg PO BID #30 tablet. Home Medications: Home Meds Hydrocodone/Acetaminophen [Keldron 5-325 Tablet] 1 - 2 tab PO Q6HR PRN 03/04/19 [History] predniSONE [Prednisone] 5 mg PO DAILY 03/04/19 [History] traZODone HCl [Trazodone HCl] 100 mg PO BEDTIME 03/04/19 [History] Pantoprazole Sodium [Protonix] 40 mg PO BID #30 tablet. 09/01/20 [Rx] Referrals: Erica Mathis PA [Primary Care Provider] - 09/05/20 3:00 pm (Please arrive 15 minutes early to register for your appointment. You will need a hemoglobin checked at your appointment.) - Discharge Summary/Plan Comment DC Time >30 min.: No - Patient Data Vitals - Most Recent: Last Vital Signs Temp 97.5 F 09/01/20 10:27 Pulse 85 09/01/20 12:32 Resp 16 09/01/20 12:32 BP 147/82 H 09/01/20 12:32 Pulse Ox 97 09/01/20 12:32 Weight - Most Recent: 172 lb 0.004 oz I&O - Last 24 hours: Intake & Output 08/31/20 09/01/20 09/01/20 22:59 06:59 14:59 Intake Total 600 975 Balance 600 975 Lab Results - Last 24 hrs: Laboratory Results - last 24 hr 08/31/20 08/31/20 09/01/20 Range/Units 17:00 17:00 05:05 Hgb 12.0 11.2 L (12.0-15.0) g/dL Potassium 3.7 (3.6-5.2) mmol/L 09/01/20 Range/Units 05:05 Hgb (12.0-15.0) g/dL Potassium 3.5 L (3.6-5.2) mmol/L Med Orders - Current: Current Medications Acetaminophen (Acetaminophen 650 Mg Supp) 650 mg RECTAL Q4H PRN PRN Reason: Mild pain/fever Hydrocodone Bitart/Acetaminophen (Acetaminophen/Hydrocodone 325-5 Mg Tab) 1 - 2 tab PO Q6H PRN PRN Reason: Pain Promethazine HCl 6.25 mg/ (Sodium Chloride) 50.25 mls @ 200 mls/hr IV Q6H PRN PRN Reason: Nausea/Vomiting Morphine Sulfate (Morphine 2 Mg/Ml Syringe) 2 mg IVPUSH Q2H PRN PRN Reason: Pain (severe 7-10) Ondansetron HCl (Ondansetron 4 Mg/2 Ml Sdv) 4 mg IV Q4H PRN PRN Reason: Nausea/Vomiting Pantoprazole Sodium (Pantoprazole 40 Mg Vial) 40 mg IV Q12H [facility] Last Admin: 09/01/20 09:11 Dose: 40 mg Documented by: Prednisone (Prednisone 5 Mg Tab) 5 mg PO DAILY [facility] Last Admin: 09/01/20 09:11 Dose: 5 mg Documented by: Trazodone HCl (Trazodone 50 Mg Tab) 100 mg PO BEDTIME [facility] Last Admin: 08/31/20 22:58 Dose: 100 mg Documented by: Discontinued Medications Fentanyl (Fentanyl 100 Mcg/2 Ml Sdv) Confirm Administered Dose 100 mcg .ROUTE .STK-MED ONE Stop: 08/30/20 07:00 Sodium Chloride (Normal Saline) 1,000 mls @ 999 mls/hr IV ASDIRECTED [facility] Last Admin: 08/29/20 23:23 Dose: 999 mls/hr Documented by: Pantoprazole Sodium 80 mg/ (Sodium Chloride) 100 mls @ 200 mls/hr IV .BOLUS [facility] Last Admin: 08/29/20 23:31 Dose: 200 mls/hr Documented by: Octreotide Acetate 500 mcg/ (Sodium Chloride) 500 mls @ 50 mls/hr IV Q10H [facility] Last Admin: 08/30/20 11:12 Dose: 50 mcg/hr, 50 mls/hr Documented by: Dextrose/Sodium Chloride (Dextrose 5%-1/2 Ns) 1,000 mls @ 100 mls/hr IV ASDIRECTED [facility] Last Admin: 08/30/20 20:13 Dose: 250 mls/hr Documented by: Pantoprazole Sodium 80 mg/ (Sodium Chloride) 100 mls @ 200 mls/hr IV .BOLUS ONE Stop: 08/30/20 00:59 Last Admin: 08/30/20 01:57 Dose: Not Given Documented by: Sodium Chloride (Normal Saline) 1,000 mls @ 1,000 mls/hr IV .BOLUS ONE Stop: 08/30/20 01:52 Last Admin: 08/30/20 04:54 Dose: 1,000 mls/hr Documented by: Midazolam HCl (Midazolam 1 Mg/Ml 2 Ml Sdv) Confirm Administered Dose 2 mg .ROUTE .STK-MED ONE Stop: 08/30/20 07:00 Ondansetron HCl (Ondansetron 4 Mg/2 Ml Sdv) 4 mg IVPUSH ONETIME ONE Stop: 08/29/20 23:26 Last Admin: 08/30/20 01:39 Dose: Not Given Documented by: Potassium Chloride (Potassium Chloride 20 Meq Tab.Er) 40 meq PO ONETIME ONE Stop: 08/31/20 09:01 Last Admin: 08/31/20 08:31 Dose: 40 meq Documented by: Potassium Chloride (Potassium Chloride 20 Meq Tab.Er) 40 meq PO ONETIME ONE Stop: 09/01/20 09:01 Last Admin: 09/01/20 09:16 Dose: 40 meq Documented by: Propofol (Propofol 200 Mg/20 Ml Sdv) Confirm Administered Dose 200 mg .ROUTE .STK-MED ONE Stop: 08/30/20 07:00 - Exam General: Reports: Alert, Oriented, Cooperative, No Acute Distress Lungs: Reports: Clear to Auscultation, Normal Respiratory Effort Cardiovascular: Reports: Regular Rate, Regular Rhythm, No Murmurs GI/Abdominal Exam: Soft, Non-Tender, No Organomegaly, No Distention Extremities: Non-Tender, No Pedal Edema
--- NOTE | 2020-09-13 09:21 | OR ---
DATE OF PROCEDURE: 08/30/2020 SURGEON: Marlon Joe MD PREOPERATIVE DIAGNOSIS: Recent upper gastrointestinal bleeding. POSTOPERATIVE DIAGNOSES: Recent upper gastrointestinal bleeding associated with intense pre- pyloric gastritis and large pyloric channel ulcer covered with clot (no active bleeding). OPERATIVE PROCEDURE: Upper gastrointestinal endoscopy with antral biopsies for CLOtest. ANESTHESIA: IV sedation. INDICATIONS FOR PROCEDURE: This is a 65-year-old male presenting with some ongoing upper GI bleeding. The plan is to proceed with upper GI endoscopy with biopsies as indicated. Potential risks including bleeding and perforation were discussed, and the patient wishes to proceed. DETAILS OF PROCEDURE: The patient was taken to the operating room, placed in a left lateral decubitus position. IV sedation was administered after which the upper GI endoscope was passed orally through the length of esophagus and into the stomach with retroflexion view of the fundus and thereafter through the more distal stomach up to the pyloric sphincter. Findings included no esophageal varices or gastric varices with the patient having a significant alcoholic history. As we approached to the pre-pyloric area, there was a very intense inflammation with the area being diffusely reddened and edematous. In the center of the pyloric channel was a large clot. This precluded direct visualization through the area of the pyloric sphincter, and we obviously elected not to try to push through that area, which would likely result in recurrent bleeding. There was no active bleeding seen in the stomach, although obviously we did not see what was going on in the duodenum with possibility of some bleeding still occurring distal to that. At any rate, biopsies were obtained from the antral areas and sent for CLOtest for H. pylori and minimal bleeding from the biopsy sites was noted. At this point, the patient clinically appears to be stabilizing during the ongoing bleeding and would continue to need high-dose proton pump inhibitor treatment. I think we can start him on some clear liquid diet. Of note, component of this ulcer is gastric in terms of the submucosal area of involvement, which would mandate a followup endoscopy somewhere around 4 to 6 weeks to confirm healing and rule out underlying malignancy. Marlon Joe MD /[id number]
== END 2020-09-01 15:05 | disposition home or self-care (01) | DRG 378 ==
LOC: JP.ED 22:53 → JP.ICU 08-30 00:31
PROVIDERS: ADMIT Family Medicine; ATTEND Hospitalist
PROC: 0DB68ZX Excision of Stomach, Via Natural or Artificial Opening Endoscopic, Diagnostic (ICD-10-PCS; principal; 2020-08-30)
DX: K25.0 Acute gastric ulcer with hemorrhage (principal); D62 Acute posthemorrhagic anemia; H91.90 Unspecified hearing loss, unspecified ear; M19.90 Unspecified osteoarthritis, unspecified site; F32.9 Major depressive disorder, single episode, unspecified; G89.29 Other chronic pain; Z79.52 Long term (current) use of systemic steroids
CPT/HCPCS: 36415; 80048; 80053; 82272; 84132; 85018; 85025; 86850; 86900; 86901; 86920; 86922; 87081; 94762; 96365; 99231; 99238; 99285-25; A9270-GY; C9113; J2250; J2354; J2704; J3010; J7030; J7040; J7042; J7512

== ENCOUNTER 2020-10-07 07:21 | Day surgery (SDC) | payer MEDICARE ==
[2020-10-07] MEDS ORDERED: Dextrose 5%-Lactated Ringers 1,000 ML IV SCH (07:30)
[2020-10-07] MEDS ORDERED: Propofol 200 MG/20 ML SDV ONE (07:49)
[2020-10-07] MEDS ORDERED: Midazolam 1 MG/ML 2 ML SDV ONE (07:49)
[2020-10-07] MEDS ORDERED: fentaNYL 100 MCG/2 ML SDV ONE (07:49)
--- NOTE | 2020-10-12 13:10 | OR ---
DATE OF PROCEDURE: 10/07/2020 SURGEON: Marlon Joe MD PREOPERATIVE DIAGNOSIS: History of recent bleeding from gastric ulcer. POSTOPERATIVE DIAGNOSIS: Healed gastric ulcer but with persistent large mass involving the lesser curvature of stomach. OPERATIVE PROCEDURES: 1. Esophagogastroduodenoscopy with. a. A. Multiple biopsies of gastric mass. b. B. Biopsies of antrum for CLOtest. ANESTHESIA: IV sedation. INDICATIONS FOR PROCEDURE: The patient is roughly 1 month status post hospitalization for an upper GI bleed. At that time, he was noted to have what appeared to be an ulcerated area of the stomach with a large amount of blood present in the stomach. He has been on Protonix and now presents for followup endoscopy for the purpose of ruling out any persistent ulcer or neoplasm. Plan is to proceed with upper GI endoscopy with biopsies as indicated. Potential risks including bleeding and perforation were discussed, and the patient wishes to proceed. DETAILS OF PROCEDURE: Patient was taken to the operating room and placed in a left lateral decubitus position. IV sedation was administered, after which the upper GI endoscope was passed orally through the length of the esophagus into the stomach with retroflexion view of the fundus and thereafter through the pyloric channel and into the proximal duodenum. Findings included normal hypopharynx, larynx, upper esophageal sphincter, and esophageal body. No significant hiatal hernia was present within the stomach, no blood or bleeding was seen. Patient was noted to have a fairly large polypoid mass involving the [id number] lesser curvature of the stomach just anterior to the direct medial aspect of the stomach. This was highly suggestive of a neoplasm but uncertain if benign or malignant. Remainder of the gastric and duodenal exams were unremarkable. At this point, biopsies were obtained from the antrum and sent for CLOtest for H pylori. Multiple biopsies from the polypoid mass were then obtained and the procedure then concluded. The patient was taken to the recovery room in satisfactory condition. Plan will be to obtain a CT scan of the abdomen and pelvis and then see the patient back next week to discuss treatment options which would likely result in resection of the stomach involving the mass. Marlon Joe MD /[id number]
== END 2020-10-07 10:56 | disposition home or self-care (01) ==
LOC: JP.SDS 07:21
PROVIDERS: ATTEND Surgery
DX: C88.4 Extranodal marginal zone B-cell lymphoma of mucosa-associated lymphoid tissue [MALT-lymphoma] (principal)
CPT/HCPCS: 43239; 87081; J2250; J2704; J3010; J7121; 88305; 88341; 88342; 88360

== ENCOUNTER 2021-06-09 05:52 | Day surgery (SDC) | payer MEDICARE ==
[2021-06-09] MEDS ORDERED: Dextrose 5%-Lactated Ringers 1,000 ML IV SCH (06:30)
[2021-06-09] MEDS ORDERED: Glycopyrrolate 0.2 MG/ML 2 ML SDV IVPUSH ONE (06:30)
[2021-06-09] MEDS ORDERED: Propofol 200 MG/20 ML SDV ONE (06:54)
[2021-06-09] MEDS ORDERED: fentaNYL 100 MCG/2 ML SDV ONE (06:54)
[2021-06-09] MEDS ORDERED: Midazolam 1 MG/ML 2 ML SDV ONE (06:54)
== END 2021-06-09 08:53 | disposition home or self-care (01) ==
LOC: JP.SDS 05:52
PROVIDERS: ATTEND Surgery
DX: C88.4 Extranodal marginal zone B-cell lymphoma of mucosa-associated lymphoid tissue [MALT-lymphoma] (principal)
CPT/HCPCS: 43239; 83013; 87081; J2250; J2704; J3010; J3490; J7121; 88305